=== PATIENT | male | born 1975 | race Hispanic/Latino ===

== ENCOUNTER 2021-05-16 08:51 | Emergency (ER) | payer BC | END 2021-05-16 09:35 | disposition home or self-care (01) | LOC: NAV ERS 08:51 | DX: J06.9 Acute upper respiratory infection, unspecified (principal); I10 Essential (primary) hypertension; Z20.822 Contact with and (suspected) exposure to COVID-19 | CPT/HCPCS: 99283 ==

== ENCOUNTER 2025-03-26 13:57 | Emergency (ER) | payer BC ==
[2025-03-26] MEDS ORDERED: Lidocaine Viscous Sol 2% 15 ml UD Cup ONE (14:20)
[2025-03-26] MEDS ORDERED: Mag-Al Plus 1200/1200/120 MG (30 mL) UDCUP ONE (14:20)
== END 2025-03-26 15:10 | disposition home or self-care (01) ==
LOC: NAV ERS 13:57
DX: K20.90 Esophagitis, unspecified without bleeding (principal); I10 Essential (primary) hypertension
CPT/HCPCS: 70360; 99284